=== PATIENT | female | born 2000 ===

== ENCOUNTER → 2023-07-14 13:16 | Outpatient (CLI) | payer SELFPAY ==
--- NOTE | ~2023-07-14 | US_ITS ---
EXAMINATION: US OB follow up DATE: 07/14/2023 13:50 INDICATION: Subchorionic hematoma. TECHNIQUE: Real-time ultrasound of the pelvis was performed. COMPARISON: None. FINDINGS: There is a single living fetus in variable presentation. The placenta is posterior, 1.4 cm from the cervix. heart rate is 152 beats per minute (bpm). The amniotic fluid index is 12.5 cm, which is normal. The cervical length is 4.9 cm on transabdominal images, which is normal. The following biometric data were obtained: Biparietal diameter (BPD): 4.2 cm; head circumference (HC): 15.6 cm; abdominal circumference (AC): 13 .4 cm; femur length (FL): 2.7 cm. These measurements are concordant. Estimated weight is 246 g +/- 37 g, which correlates with the 44th percentile when 12/11/23 is us ed as estimated date of delivery. As single measurements, these parameters are each equal to the following estimated gestational ages: BPD: 18 weeks 4 days. HC: 18 weeks 3 days. AC: 18 weeks 6 days. FL: 18 weeks 2 days. estimated gestational age based solely on measurements from this exam is 18 weeks 4 days +/- 1 weeks 2 days. IMPRESSION: 1. Single living fetus in variable presentation. 2. Estimated weight is 246 g +/- 37 g, which correlates with the 44th percentile when 12/11/23 i s used as estimated date of delivery. 3. Low lying placenta. Reviewed, dictated and finalized at location E. IMPRESSION: 1. Single living fetus in variable presentation. 2. Estimated weight is 246 g +/- 37 g, which correlates with the 44th pe rcentile when 12/11/23 is used as estimated date of delivery. 3. Low lying placenta.
== END ==
PROVIDERS: PCP Obstetrics & Gynecology Gynecology; Visit Provider Obstetrics & Gynecology Gynecology
DX: O36.8910 Maternal care for other specified fetal problems, first trimester, not applicable or unspecified (principal); Z3A.18 18 weeks gestation of pregnancy
CPT/HCPCS: 76816